=== PATIENT | female | born 1965 | race Caucasian/White ===

== ENCOUNTER → 2019-01-26 13:54 | Outpatient (CLI) | payer MEDICARE, SELFPAY ==
[2019-01-26 12:44] VITALS: BMI 30.5
[2019-01-26 14:58] LABS: Absolute Lymphocyte Count 2.18 X10^3/ul (0.83-4.51); Absolute Neutrophil Count 4.9 X10^3/uL (2.0-7.7); Basophil# 0.02 X10^3/uL; Basophil% 0.3 % (0-1); Eosinophil# 0.19 X10^3/uL; Eosinophils% 2.4 % (0-5); Hematocrit 38.7 % (37-47); Hemoglobin 12.3 g/dl (12.0-15.0); Lymphocyte # 2.18 X10^3/ul (4.0); Lymphocyte % 27.8 % (19-41); Mean Corp Hgb Conc 31.8 g/gl (32-36); Mean Corpuscular Hgb 25.6 pg (27.0-32.0); Mean Corpuscular Volume 80.6 fL (81-99); Mean Platelet Vol. 8.9 fl (6.2-12.0); Monocyte# 0.53 X10^3/uL; Monocyte% 6.8 % (0-10); Neutrophil # 4.89 X10^3/uL (2.7-7.7); Neutrophil % 62.3 % (47-70); Platelet Count 361 K/mm3 (150-450); RBC Distribution Width CV 16.5 % (11.6-14.6); RBC Distribution Width SD 47.9 fl (35.1-43.9); White Blood Count 7.8 K/mm3 (4.4-11.0)
[2019-01-26 14:59] LABS: POSITIVE COUNT NO; POSITIVE DIFFERENTIAL NO; POSITIVE MORPHOLOGY NO
[2019-02-02 20:06] LABS: Alternaria tenuis <0.10 kU/L (Class 0); Ash, White <0.10 kU/L (Class 0); Aspergillus fumigatus <0.10 kU/L (Class 0); Bermuda Grass <0.10 kU/L (Class 0); Birch <0.10 kU/L (Class 0); Black Walnut <0.10 kU/L (Class 0); Cat Hair / Dander,Stand <0.10 kU/L (Class 0); Cedar, Mountain <0.10 kU/L (Class 0); Cladosporium herbarum <0.10 kU/L (Class 0); Cockroach, American <0.10 kU/L (Class 0); Cottonwood <0.10 kU/L (Class 0); D farinae Mite <0.10 kU/L (Class 0); D pteronyssinus <0.10 kU/L (Class 0); Dog Epithelia <0.10 kU/L (Class 0); Elm, American White <0.10 kU/L (Class 0); Immunoglobulin E 64 IU/mL (6-495); Maple/Box Elder <0.10 kU/L (Class 0); Mulberry, White <0.10 kU/L (Class 0); Oak, White <0.10 kU/L (Class 0); Pecan <0.10 kU/L (Class 0); Penicillium Notatum <0.10 kU/L (Class 0); Pigweed, Rough <0.10 kU/L (Class 0); Ragweed, Short/Common <0.10 kU/L (Class 0); Russian Thistle <0.10 kU/L (Class 0); Sheep Sorrel <0.10 kU/L (Class 0); Sycamore, American <0.10 kU/L (Class 0); Timothy Grass <0.10 kU/L (Class 0)
[2019-02-03 12:39] LABS: Mouse Urine <0.10 kU/L (Class 0)
[2019-02-03 12:46] LABS: Immunoglobulin E 62 IU/mL (6-495)
== END ==
PROVIDERS: Family Provider Nurse Practitioner Primary Care; PCP Nurse Practitioner Primary Care; Referring Provider Internal Medicine Critical Care Medicine; Visit Provider Internal Medicine Critical Care Medicine
DX: J45.909 Unspecified asthma, uncomplicated (principal); Q89.3 Situs inversus
CPT/HCPCS: 36415; 82785; 85025; 86003

== ENCOUNTER → 2019-02-21 | Outpatient (CLI) | payer MEDICARE, SELFPAY ==
[2019-01-26 12:44] VITALS: BMI 30.5
--- NOTE | 2019-02-21 15:15 | PFTCOMP ---
COMPLETE PULMONARY FUNCTION TEST INTERPRETATION Brief HPI: Patient is a 53 year old female, currently under the care of Dr. Byers, who presents to [facility] for complete pulmonary function tests secondary to diagnosis of asthma. Respiratory therapist reports good effort and reproducible results. Interpretation: Forced expiration spirometry shows no large airways obstructive ventilatory defect with an FEV1 of 72% predicted. There is no significant bronchodilator response by strict ATS criteria. Spirograms are of good quality and plateau normally. The respiratory flow volume loop shows a normal pattern. Lung volumes by body plethysmography show a decreased total lung capacity at 4.97 L, 86% predicted. All other lung volumes are within normal limits. Diffusion capacity by carbon monoxide is normal at 80% predicted. The airway resistance is normal. No previous pulmonary function tests were available for review. Impression: Mild restrictive ventilatory defect
== END | disposition home or self-care (01) ==
PROVIDERS: Family Provider Nurse Practitioner Primary Care; PCP Nurse Practitioner Primary Care; Referring Provider Internal Medicine Critical Care Medicine; Visit Provider Internal Medicine Critical Care Medicine
DX: J45.909 Unspecified asthma, uncomplicated (principal)
CPT/HCPCS: 94060; 94726; 94729

== ENCOUNTER → 2019-03-10 | Outpatient (CLI) | payer MEDICARE, SELFPAY ==
[2019-02-23 09:50] VITALS: BMI 30.5
--- NOTE | 2019-03-10 07:28 | CT_ITS ---
STUDY: CT CHEST WITH CONTRAST REASON FOR EXAM: Female, 53 years old. Chronic cough. History of thyroid cancer and resection. Possible left lung mass. RADIATION DOSAGE (If Supplied By Facility): CTDIvol = ( 14.52 ) mGy, DLP = ( 585.13 ) mGycm TECHNIQUE: Transaxial imaging was performed following intravenous administration of 100mL IV Isovue 300. Multiplanar coronal and sagittal images were reformatted. Individualized dose optimization techniques were used for this CT. COMPARISON: None. FINDINGS: Mild degree of increased markings in the lingular segment of the left upper lobe suggestive of scarring. Mild increased linear markings at the left lung base suggestive of scarring. There is no demonstrated pleural abnormality. Normal heart and pericardium. There are multiple small lymph nodes within the mediastinum, which are normal in size and morphology most compatible with reactive lymph hyperplasia. Normal hilar regions. Normal enhanced pulmonary arteries. Normal aorta arch and descending thoracic aorta. Normal osseous structures. Massive hepatomegaly. The spleen is not seen. CT/Chest WITH Contrast IMPRESSION: Mild scarring in both lungs as described. Massive hepatomegaly. Electronically Signed: Yusuf Alatorre, at 11:35 EDT , Service support ,
[2019-03-10 07:41] LABS: CREATININE FINGERSTICK 1.5 mg/dL (0.55-1.02)
== END | disposition home or self-care (01) ==
PROVIDERS: Family Provider Nurse Practitioner Primary Care; PCP Nurse Practitioner Primary Care; Referring Provider Internal Medicine Critical Care Medicine; Visit Provider Internal Medicine Critical Care Medicine
DX: J98.59 Other diseases of mediastinum, not elsewhere classified (principal); R93.89 Abnormal findings on diagnostic imaging of other specified body structures
CPT/HCPCS: 71260; Q9967

== ENCOUNTER → 2019-04-25 | Outpatient (CLI) | payer MEDICARE, SELFPAY ==
[2019-04-06 09:36] VITALS: BMI 30.2
--- NOTE | 2019-04-25 09:00 | PET_ITS ---
EXAMINATION: FDG PET CT INDICATIONS: A 53-year-old female with history of thyroid carcinoma presenting for restaging examination and apparent evaluation of pulmonary nodularity. COMPARISON EXAMINATION: CT of the chest report dated 03/10/19. TECHNIQUE: Following the intravenous administration of 14.7 mCi of F-18 deoxyglucose via the left antecubital fossa, multiplanar image acquisitions of the neck, chest, abdomen and pelvis to level of mid thigh, obtained at one hour post radiopharmaceutical administration contemporaneously interpreted with the current CT of the neck, chest, abdomen and pelvis to level of mid thigh, dated 04/25/[address] of the chest report dated 03/10/19 reveal: SERUM GLUCOSE LEVEL: 117 mg/dl. HEIGHT: 68 inches. WEIGHT: 199 lbs. FINDINGS: 1. There is no quantitative scintigraphic evidence of abnormal increased glucose metabolism on meticulous inspection of whole body acquisitions to include all three axis reconstructions. 2. Normal physiologic distribution of the radiopharmaceutical is apparent in the hepatic and splenic parenchyma, both renal units, bladder and visualized intestinal tract. There is uniform distribution of the radiopharmaceutical concentration defined in the visualized cerebellar hemispheres and cerebral cortical structures.? Diffuse intestinal tract activity is noted throughout all four quadrants of the abdominal-pelvic retroperitoneum, mesentery consistent with normal physiologic distribution of the radiopharmaceutical. The liver is markedly enlarged extending to the left upper abdomen. Pertinent CT findings are as follows. CHEST: A noncalcified subcentimeter parenchymal density noted in the right mid posteromedial lung zone, right lower lobe demonstrates no evidence of increased glucose concentration. Bilateral axillary soft tissue densities are non-glucose avid. Scattered subcentimeter mediastinal soft tissue is ametabolic. 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 Right-left inguinal soft tissue densities demonstrate no evidence of increased glucose metabolism. The uterus is surgically absent. Calcification is defined in the right lower hemipelvis. SKELETAL: Degenerative changes defined in the cervical, thoracic and lumbar spine demonstrate no evidence for glucose hypermetabolism. PET/PET/CT Tumor Base -Thigh Init IMPRESSION: 1. NEGATIVE EXAMINATION. There is no definitive quantitative scintigraphic evidence of viable neoplasm. 2. Anatomic stability may be ensured in the nonglucose avid right lower lobe parenchymal density, with repeat CT of the chest and/or FDG PET CT imaging in three-six months. ([place], Seminars in Thoracic and Cardiovascular Surgery 14:292, 2002). 3. 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 ([place] et al, Radiographics 19:837, 1998). Electronic Signature Wilbert Jaimes D.O. Electronically Signed: Wilbert Jaimes DO at 23:04 EDT Tel , Service support ,
== END | disposition home or self-care (01) ==
LOC: ONC 08:05
PROVIDERS: Family Provider Nurse Practitioner Primary Care; PCP Nurse Practitioner Primary Care; Referring Provider Internal Medicine Critical Care Medicine; Visit Provider Internal Medicine Critical Care Medicine
DX: R91.8 Other nonspecific abnormal finding of lung field (principal)
CPT/HCPCS: 78815; A9552

== ENCOUNTER 2024-05-24 11:17 | Emergency (ER) | payer MEDICARE, SELFPAY ==
[2024-05-24] VITALS (7 sets, daily range): BP systolic 132–183; BP diastolic 57–106; PULSE 64–88; RESP 16–20; TEMP 36.3–36.7; O2SAT 95–98; BMI 31.0
--- NOTE | 2024-05-24 12:05 | EX.ED.DYSGE1 ---
HPI History of Present Illness Chief Complaint: Nausea/Vomiting Informant: patient and spouse/S.O. Narrative Narrative: Here with spouse for evaluation nausea vomiting for last 3 days. No hematemesis. 3-4 episodes a day this morning had 1. Cholecystectomy total hysterectomy in the past. Patient follows GI in [place], a month ago started on Linzess for constipation. 7 increasing bowel movement since then. They have cut down Linzess secondary to this. However cannot recall when her last bowel movement is. She is passing gas. Denies any current abdominal pain or any increasing distention. No fevers or chills. Patient denies urinary symptoms denies cough. Per spouse this morning was confused, however that has resolved. She is a diabetic, she is on Reglan 3 times a day. We discussed gastroparesis spouse thinks this was a diagnosis. [facility] Medical History (Updated 05/24/24 @ 15:[address] Rasheed Hairston, DO) Situs inversus Bronchitis Overactive bladder Shortness of breath at rest Asthma Lung nodule Esophageal thickening Depression Dyspareunia Atrophic vaginitis Combined hyperlipidemia Left carpal tunnel syndrome Malignant neoplasm of thyroid gland Chest pain SUSAN (obstructive sleep apnea) Bone disorder Impaired fasting glucose Dysmetabolic syndrome X Hypothyroidism Barretts esophagus Abnormal chest CT Home Medications ?Medication ?Instructions ?Recorded ?Last Taken ?Type albuterol sulfate 90 mcg/actuation 1 puff inhalation DAILY PRN PRN 09/20/14 Unknown History aerosol inhaler Wheezing bupropion HCl 450 mg 24 hr tablet, 450 mg PO DAILY 09/20/14 Unknown History extended release fenofibrate nanocrystallized 145 200 mg PO QHS 09/20/14 Unknown History mg tablet levothyroxine 150 mcg tablet 300 mcg PO DAILY 09/20/14 Unknown History lorazepam 1 mg tablet 1 mg PO BID 09/20/14 Unknown History metformin 750 mg tablet,extended 1,500 mg PO QHS 09/20/14 Unknown History release 24 hr pantoprazole 40 mg tablet,delayed 40 mg PO BID 09/20/14 Unknown History release propranolol 60 mg tablet 60 mg PO DAILY PRN PRN Migraine 09/20/14 Unknown History Symptoms quetiapine 400 mg tablet,extended 400 mg PO QHS 09/20/14 Unknown History release 24 hr ranitidine HCl 300 mg capsule 300 mg PO QHS 09/20/14 Unknown History sertraline 50 mg tablet 50 mg PO DAILY 09/20/14 Unknown History buspirone 10 mg tablet 10 mg PO BID 01/25/19 Unknown History linagliptin 5 mg tablet (Tradjenta) 5 mg PO QAM 01/25/19 Unknown History metoclopramide HCl 10 mg tablet 10 mg PO QAC 01/25/19 Unknown History rosuvastatin 20 mg tablet 20 mg PO DAILY 01/25/19 Unknown History calcium carb,cit ER 600 mg-vit D3 tab PO 01/26/19 Unknown History 12.5 mcg (500 unit) tablet,ext.rel (Citracal-D3 Slow Release) oxybutynin chloride 5 mg 5 mg PO DAILY 01/26/19 Unknown History tablet,extended release 24 hr fluticasone furoate 200 1 inh inhalation DAILY #1 ea 08/09/19 Unknown Rx mcg-vilanterol 25 mcg/dose inhalation powder (Breo Ellipta) ondansetron 4 mg disintegrating 4 mg PO Q8H PRN PRN Nausea #10 tabs 05/24/24 Unknown Rx tablet Allergy/AdvReac Type Severity Reaction Status Date / Time oxycodone HCl (From Percocet) Allergy Other Verified 05/24/24 11:21 Family History Sister Glaucoma Hypertension Cancer Skin Father Heart disease Hypertension Diabetes Myocardial infarction Mother Hypertension Myocardial infarction Surgical History History of cholecystectomy History of thyroidectomy History of nasal septoplasty Social History Smoking Status: Never smoker second hand exposure: No substance use type: marijuana ROS ROS ED Constitutional Constitutional ED: Denies chills, fever(s) or sweats Eyes Eyes: Denies change in vision ENT ENT ED: Denies dysphagia or sore throat Cardiovascular Cardiovascular: Denies chest pain, leg edema, palpitations or racing heartbeat Respiratory/Chest Respiratory/Chest: Denies cough, dyspnea or dyspnea on exertion Gastrointestinal Gastrointestinal: Reports vomiting; Denies abdominal pain, diarrhea or nausea Genitourinary Genitourinary ED: Denies dysuria, hematuria or urinary frequency Musculoskeletal Musculoskeletal: Denies back pain, extremity pain or neck pain Integumentary Denies rash or wounds Neurologic Neurologic: Denies headache(s), paresthesias or weakness EXAM Physical Exam Const Vital Signs: 05/24/24 11:18 05/24/24 12:53 05/24/24 13:00 Temperature 97.3 F L Temperature Source Temporal Pulse Rate 78 69 79 Respiratory Rate 16 18 17 Blood Pressure 132/95 H 183/57 H 163/106 H Blood Pressure Mean 107 99 125 Pulse Ox 95 98 98 Oxygen Delivery Method Room Air Room Air Room Air 05/24/24 14:00 05/24/24 15:00 05/24/24 15:57 Temperature Temperature Source Pulse Rate 64 78 88 Respiratory Rate 20 H 18 19 H Blood Pressure 163/78 H 149/101 H 158/74 H Blood Pressure Mean 106 117 102 Pulse Ox 97 98 96 Oxygen Delivery Method Room Air Room Air Room Air Positive well nourished and well developed Constitutional Narrative: Nontoxic, slight sweats on the forehead. General Appearance ED: well developed and NAD HEENT Reports moist mucous membranes normocephalic and atraumatic Eyes EOMs intact bilaterally and conjunctivae normal General Eye ED: Yes normal appearance of both eyes Neck no lymphadenopathy and supple General: Negative for tenderness Chest Wall Chest: Negative for tenderness Resp normal respiratory effort and normal air movement Effort and Inspection: symmetric chest movement; Negative for respiratory distress Cardio regular rate, regular rhythm and no murmurs Peripheral Pulses: pulses 2+ throughout GI normal to inspection, nondistended, normoactive bowel sounds and non-tender GI Narrative: Negative Mercedes's or McBurney's tenderness. Palpation: Negative for guarding or rebound tenderness present Back/Spine no CVA tenderness and no thoracic nor lumbar tenderness Extremity normal to inspection General Extremety ED: Negative for edema or tenderness General Extremity: Negative for edema Neuro oriented x3 and no sensory deficits noted Sensorium / Orientation: awake and alert Skin no rashes or lesions noted and no wounds MDM MDM MDM Narrative Medical decision making narrative: Interventions / MDM: Differential diagnosis: Nausea and vomiting, history of gastroparesis, diabetes Diagnosis considered but do not suspect: Diabetic ketoacidosis however normal anion gap with hypoglycemic event. Bowel obstruction however negative CT imaging. My EKG interpretation: N/A Imaging independently reviewed and interpreted by myself: Acute abdominal series 3 views: Small bowel abdominal distention, ileus versus obstruction per radiology. CT abdomen pelvis out contrast: No obstruction or ileus noted. External documents reviewed: N/A Test considered but not ordered:N/A ED course: Patient vital stable nontoxic alert and orient x 3. Nonsurgical abdomen. Will give IV fluids, will check basic labs and urine. Lab called patient's blood glucose was 36. She is a diabetic. She was alert and orient x 3 during evaluation. Should be given D50. Per spouse no insulin was given this morning last dose was last evening. This would likely reason for her confusion this morning. 1420: Reevaluation clinically much more improved nausea improved. However abdominal series had distention of small bowels and air through the colon. Ileus versus early bowel obstruction per radiology. Her urine negative for infection her labs are all stable. Creatinine 0.93. Glucose 148 on recheck. Will send for noncontrast CT scan further evaluation of the bowels she is clinically much more improved. 1530: Patient clinically is feeling better attempted p.o. challenge per nursing she vomited. Reevaluate patient she states only little bit. However with her emesis will give IV Reglan, will reevaluate and p.o. challenge. 1600: Patient signed out to oncoming physician. She tolerated p.o. challenge, she will discharge with Zofran in addition to her Reglan. She continue oral fluids. Discussed avoiding insulin if she is not eating to avoid hypoglycemic events. Return precautions. Re-evaluation: stable Disposition discussed with patient/family/significant other: Patient significant other Case discussed with consulting clinician: N/A This note was generated with Fantoo dictation software. It may contain incorrect words, spelling, and punctuation that were not noted in checking the note before signing. Lab Data Attestation: I reviewed the patient's lab results. Labs: Laboratory Results - last 24 hr 05/24/24 05/24/24 05/24/24 11:30 12:40 13:06 WBC 9.9 RBC 5.47 H Hgb 13.2 Hct 43.1 MCV 78.8 L MCH 24.1 L MCHC 30.6 L RDW Std Deviation 49.1 H RDW Coeff of Bhavna 18.0 H Plt Count 393 MPV 8.8 Immature Gran % (Auto) 0.500 Neut % (Auto) 79.2 H Lymph % (Auto) 14.[address] [place] % (Auto) 5.3 Eos % (Auto) 0.1 Baso % (Auto) 0.4 Absolute Neuts (auto) 7.9 H Absolute Lymphs (auto) 1.44 Nucleated RBC % 0 Sodium 144 Potassium 3.2 L Chloride 109 H Carbon Dioxide 28.0 Anion Gap 7 BUN 20 H Creatinine 0.93 Estim Creat Clear Calc 77.51 Est GFR (MDRD) Af Amer 79 Est GFR (MDRD) Non-Af 65 BUN/Creatinine Ratio 21.4 H Glucose 36 L* Calcium 9.5 Urine Color Yellow Urine Clarity Clear Urine pH 5.0 Ur Specific [place] 1.025 Urine Protein 30 H Urine Glucose (UA) Normal Urine Ketones Negative Urine Occult Blood 50 H Urine Nitrite Negative Urine Bilirubin Negative Urine Urobilinogen Normal Ur Leukocyte Esterase Negative Urine RBC 0-5 SEEN Urine WBC 0-5 SEEN Ur Squamous Epith Cells 0-5 SEEN Urine Bacteria 0 SEEN Urine Mucus RARE POC Glucose 148 H Radiography Diagnostic Testing: Clinical Impression(s) from Imaging Studies Acute Abdomen Series 05/24/24 12:15 IMPRESSION: Mildly distended small bowel loops in the right mid abdomen. Gas is seen down to the rectum. This may represent either localized ileus versus early small bowel obstruction. Follow-up recommended. Electronically Signed: Yusuf Alatorre MD at 13:22 EDT , Abdomen/Pelvis CT 05/24/24 14:19 IMPRESSION: Situs inversus. The small bowel loops in the right upper quadrant measure up limits of normal. No evidence of small bowel obstruction at this time. The patient is status post cholecystectomy and hysterectomy. Hepatomegaly and fatty infiltration of the liver. Electronically Signed: Yusuf Alatorre MD at 15:11 EDT , Discharge Plan Triage Chief Complaint: Nausea/Vomiting ED Provider: Rasheed Hairston Dx/Rx/DC Orders Clinical Impression: Nausea & vomiting, Hypoglycemic event in diabetes Instructions: Hypoglycemia (Low Blood Sugar), ED Vomiting (Adult) Prescriptions: New ondansetron 4 mg tablet,disintegrating 4 mg PO Q8H PRN PRN (Reason: Nausea) Qty: 10 0RF No Action buspirone 10 mg tablet 10 mg PO BID metoclopramide HCl 10 mg tablet 10 mg PO QAC rosuvastatin 20 mg tablet 20 mg PO DAILY Tradjenta 5 mg tablet 5 mg PO QAM calcium carb and citrate-vitD3 [Citracal-D3 Slow Release] 600 mg calcium- 500 unit tablet extended release PO oxybutynin chloride 5 mg tablet extended release 24hr 5 mg PO DAILY Breo Ellipta 200-25 mcg/dose blister with device 1 inh INHALATION DAILY Qty: 1 6RF propranolol 60 MG capsule 60 mg PO DAILY PRN PRN (Reason: Migraine Symptoms) pantoprazole 40 MG tablet 40 mg PO BID ranitidine HCl 300 MG tablet 300 mg PO QHS levothyroxine 150 MCG tablet 300 mcg PO DAILY lorazepam 1 MG tablet 1 mg PO BID albuterol sulfate 6.7 GM HFA aerosol inhaler 1 puff inhalation DAILY PRN PRN (Reason: Wheezing) sertraline 50 MG tablet 50 mg PO DAILY metformin 750 MG tablet extended release 24 hr 1,500 mg PO QHS fenofibrate nanocrystallized 145 MG tablet 200 mg PO QHS quetiapine 400 MG tablet extended release 24 hr 400 mg PO QHS bupropion HCl 450 MG tablet extended release 24 hr 450 mg PO DAILY Primary Care Provider: Angeles Cortez NP Referrals: Angeles Cortez NP, EMERGENCY RESPONSE OFFICER-C [Primary Care Provider] - 3-5 Days Activity Restrictions/Additional Instructions: Your CT scan negative for obstruction or ileus. Labs are stable. Continue oral fluids for hydration. You have Reglan at home. You may also use Zofran as needed. You had hypoglycemia in the ED that improved. Do not use insulin if you are not eating. Monitor glucose. If you have worsening symptoms, return to the ED for reevaluation. Print Language: Khmer
[2024-05-24] MEDS: Ondansetron 4 MG/2 ML Vial IV (12:09)
[2024-05-24] MEDS: 0.9% Normal Saline (1000mL) 1,000 ML 1000 ML IV (12:09)
[2024-05-24 12:15] LABS: Absolute Lymphocyte Count 1.44 X10^3/uL (0.83-4.51); Absolute Neutrophil Count 7.9 X10^3/uL (2.0-7.7); Basophil# 0.04 X10^3/uL; Basophil% 0.4 % (0-1); Eosinophil# 0.01 X10^3/uL; Eosinophils% 0.1 % (0-5); Hematocrit 43.1 % (37-47); Hemoglobin 13.2 g/dL (12.0-15.0); Lymphocyte # 1.44 X10^3/ul (0.83-4.51); Lymphocyte % 14.5 % (19-41); Mean Corp Hgb Conc 30.6 g/dL (32-36); Mean Corpuscular Hgb 24.1 pg (27.0-32.0); Mean Corpuscular Volume 78.8 fL (81-99); Mean Platelet Vol. 8.8 fl (6.2-12.0); Monocyte# 0.53 X10^3/uL; Monocyte% 5.3 % (0-10); NRBC Flagged by Analyzer 0 % (0-5); Neutrophil # 7.87 X10^3/uL (2.7-7.7); Neutrophil % 79.2 % (47-70); Platelet Count 393 K/mm3 (150-450); RBC Distribution Width SD 49.1 fl (35.1-43.9); Red Blood Count 5.47 M/mm3 (4.2-5.4); White Blood Count 9.9 K/mm3 (4.4-11.0)
--- NOTE | 2024-05-24 12:15 | RAD_ITS ---
STUDY: X-RAY - ACUTE ABDOMINAL SERIES REASON FOR EXAM: Female, 58 years old. Vomiting. TECHNIQUE: Single view of the chest. Supine, and erect view(s) of the abdomen were obtained. COMPARISON: Comparison is made with prior chest radiograph dated September 20, 2014. FINDINGS: EKG electrodes are seen. Hyperinflation. Normal size heart. Normal mediastinum and atilio. Normal visualized pulmonary arteries. Normal visualized aortic arch and descending thoracic aorta. Mildly distended small bowel loops in the right mid abdomen. Gas is seen in the colon down to the rectum. Surgical clips are seen in the left upper quadrant. This may represent either an ileus pattern or possible early small bowel obstruction. Follow-up recommended. The soft tissue structures of the abdomen and pelvis are unremarkable. There are degenerative changes of the visualized lumbar spine. RAD/Acute Abdomen Inc Chest IMPRESSION: Mildly distended small bowel loops in the right mid abdomen. Gas is seen down to the rectum. This may represent either localized ileus versus early small bowel obstruction. Follow-up recommended. Electronically Signed: Yusuf Alatorre MD at 13:22 EDT ,
[2024-05-24 12:36] LABS: Anion Gap 7 (5-15); BUN 20 mg/dL (7-18); BUN/Creat Ratio 21.4 RATIO (10-20); Calcium,Total 9.5 mg/dL (8.5-10.1); Chloride 109 mmol/L (98-107); Creatinine, Serum 0.93 mg/dL (0.55-1.02); EST Glomerular Filtration Rate 65 mL/min (>60); Est Glom Filt Rate - Afr Amer 79 mL/min (>60); Estimated Creatinine Clearance 77.51 ml/min; Glucose 36 mg/dL (74-106); Potassium 3.2 mmol/L (3.5-5.1); Sodium Level 144 mmol/L (136-145)
[2024-05-24 12:44] LABS: Bacteria 0 SEEN /hpf (None Seen)
[2024-05-24 12:45] LABS: Color, Urine Yellow (Yellow); Glucose, Dipstick Normal (Normal); Ketone-Dipstick Negative (Negative); Leukocyte Esterase-Dipstick Negative /ul (Negative); Nitrite-Dipstick Negative (Negative); Occult Blood-Urine 50 /ul (Negative); Protein-Dipstick 30 mg/dl (Negative); Specific Gravity, Urine 1.025 (1.002-1.030); Urine Bilirubin Dipstick Negative (Negative); Urine Clarity Clear (Clear); Urine Urobilinogen Normal (Normal)
[2024-05-24 12:51] LABS: Mucous, Urine RARE /hpf (<or=2+); Red Blood Cells-Urine 0-5 SEEN /hpf (0-5); Squamous Epithelial Cells - UA 0-5 SEEN /hpf (5-10); White Blood Cells 0-5 SEEN /hpf (0-5)
[2024-05-24 13:25] LABS: Bedside Glucose 148 mg/dL (74-106)
--- NOTE | 2024-05-24 14:19 | CT_ITS ---
STUDY: CT ABDOMEN AND PELVIS WITHOUT CONTRAST REASON FOR EXAM: Female, 58 years old. 3 day history of nausea and vomiting. RADIATION DOSAGE (If Supplied By Facility): CTDIvol = ( 19.38 ) mGy, DLP = ( 949.66 ) mGycm TECHNIQUE: Transaxial images were obtained from the dome of the diaphragm to the symphysis pubis without oral contrast, and without intravenous contrast. Sagittal and coronal images were reconstructed. Individualized dose optimization techniques were used for this CT. COMPARISON: Comparison is made with prior radiographs done earlier in the day. FINDINGS: The visualized lung bases are unremarkable. Mild degree of anterior pericardial thickening. There is decreased attenuation of the liver consistent with steatosis. Hepatomegaly. There is evidence of a situs inversus of the liver. There are surgical clips in the gallbladder fossa consistent with a prior cholecystectomy. Normal spleen. Normal pancreas. Normal bilateral adrenal glands. Normal right kidney. Normal left kidney. The stomach is on the left side of the midline. The small bowel loops in the right upper quadrant measure upper limits of normal. Normal colon. The appendix is visualized and appears normal. Normal abdominal aorta. The inferior vena cava is on the left side of the midline. There is a small retroperitoneal lymphadenopathy with enlarged nodes no greater than 10mm in the short axis diameter. Normal urinary bladder. There is absence of the uterus consistent with a prior hysterectomy. Normal abdominal wall. Normal osseous structures. CT/Abdomen/Pelvis without Cont IMPRESSION: Situs inversus. The small bowel loops in the right upper quadrant measure up limits of normal. No evidence of small bowel obstruction at this time. The patient is status post cholecystectomy and hysterectomy. Hepatomegaly and fatty infiltration of the liver. Electronically Signed: Yusuf Alatorre MD at 15:11 EDT ,
[2024-05-24] MEDS: Metoclopramide 10 MG/2 ML Vial 5 MG IV (15:42)
== END 2024-05-24 16:09 | disposition home or self-care (01) ==
PROVIDERS: Emergency Provider Emergency Medicine; PCP Nurse Practitioner Primary Care; Visit Provider Emergency Medicine
DX: R11.2 Nausea with vomiting, unspecified (principal); E11.649 Type 2 diabetes mellitus with hypoglycemia without coma; F12.90 Cannabis use, unspecified, uncomplicated; G47.33 Obstructive sleep apnea (adult) (pediatric)
CPT/HCPCS: 74022; 74176; 80048; 81001; 82962; 85025; 96361; 96374; 96375; 99285; J7030; A4216; J2405